=== PATIENT | female | born 1940 | race Caucasian/White ===

== ENCOUNTER 2017-11-09 14:14 | Inpatient (IN) | payer OTHER, BC ==
[~2017-11-09] VITALS: Ht 157.5 cm; Wt 58.5 kg
[2017-11-09 14:14] VITALS: BP_SYST 187
[2017-11-09] MEDS ORDERED: ALEN70TA3 PO (15:13)
[2017-11-09] MEDS ORDERED: ESCI10TA PO (15:13)
[2017-11-09] MEDS ORDERED: PRAV40TA PO (15:13)
[2017-11-09] MEDS ORDERED: OMEP40CA33 PO (15:13)
[2017-11-09] MEDS ORDERED: DILT120C89 PO (15:13)
[2017-11-09] MEDS ORDERED: MULT-1159 PO (15:13)
[2017-11-09] MEDS ORDERED: CAT.1 PO (15:13)
[2017-11-09] MEDS ORDERED: CLOP300T2 PO (15:13)
[2017-11-09] MEDS ORDERED: VALS1TAB78 PO (15:13)
[2017-11-09] MEDS ORDERED: LEVO100T9 PO (15:13)
[2017-11-09 16:06] LABS: INR 0.9 (0.8-1.2); PROTHROMBIN TIME 9.6 SECS (9.5-12.5)
[2017-11-09 16:33] LABS: ANION GAP 11 (5-15); CALCIUM 9.9 mg/dL (8.4-11.0); CHLORIDE 86 mmol/L (98-107); CREATININE 1.21 mg/dL (0.55-1.30); GLUCOSE 115 mg/dL (70-99); POTASSIUM 3.4 mmol/L (3.5-5.1); SODIUM SERUM 125 mmol/L (136-145); UREA NITROGEN, BLOOD 16 mg/dL (8-21)
[2017-11-09 16:39] LABS: ALANINE AMINOTRANSFERASE 23 U/L (12-78); ALBUMIN 4.4 g/dL (3.4-4.8); ASPARTATE AMINOTRANSFERASE 24 U/L (10-37); TOTAL BILIRUBIN 0.6 mg/dL (0.0-1.0)
[2017-11-09 16:51] LABS: HEMATOCRIT 37.1 % (36-48)
[2017-11-09 16:53] LABS: HEMOGLOBIN 13.4 g/dL (12.0-16.0); MEAN CORPUSCULAR HEMOGLOBIN 34 pg (27-31); MEAN CORPUSCULAR HGB CONC 36 % (32-36); MEAN CORPUSCULAR VOLUME 95 fL (79.0-98.0); PLATELET COUNT (AUTO) 184 K/uL (130-430); RED BLOOD CELL COUNT(AUTO) 3.93 MIL/uL (4.2-6.2); RED CELL DISTRIBUTION WIDTH 11.9 % (9.0-15.0)
[2017-11-09 16:56] LABS: WHITE BLOOD COUNT (AUTO) 31.2 K/uL (4.8-10.8)
[2017-11-09] MEDS ORDERED: cefTRIAXone 1 GM IVPB PREMIX 50 ML IV ONE (17:00)
[2017-11-09] MEDS ORDERED: NACL 0.9% 1,000 ML IV ONE (17:00)
[2017-11-09 17:25] LABS: BILIRUBIN,URINE NEGATIVE (NEGATIVE); BLOOD, URINE NEGATIVE (NEGATIVE); CLARITY/URINE CLEAR (CLEAR); COLOR,URINE YELLOW (YELLOW); GLUCOSE,URINE NEGATIVE (NEGATIVE); KETONES,URINE NEGATIVE (NEGATIVE); LEUKOCYTE ESTERASE ,URINE NEGATIVE (NEGATIVE); NITRITE, URINE NEGATIVE (NEGATIVE); PROTEIN URINE TRACE (NEGATIVE); UROBILINOGEN,URINE 0.2 (0.2-1.0)
[2017-11-09 17:55] LABS: BAND % (MANUAL) 1 % (0-6); BASOPHILS % (MANUAL) 0 % (0-2); EOSINOPHILS % (MANUAL) 0 % (0-7); LYMPHOCYTES % (MANUAL) 82 % (20-46); MONOCYTES % (MANUAL) 0 % (0-11)
[2017-11-09 19:08] VITALS: BP_SYST 230
[2017-11-09] MEDS: cloNIDine HCL 0.1 MG TABLET PO SCH (20:33)
[2017-11-09 20:57] VITALS: BP_SYST 194
[2017-11-10 00:20] VITALS: BP_SYST 125
[2017-11-10] MEDS ORDERED: OMEPRAZOLE 20 MG CAPSULE.DR (PriLOSEC) PO PRN (06:15)
[2017-11-10] MEDS: LEVOTHYROXINE SODIUM 0.1 MG TABLET PO SCH (07:05)
[2017-11-10 08:04] VITALS: BP_SYST 144
[2017-11-10] MEDS: CLOPIDOGREL BISULFATE 75 MG TABLET PO SCH (08:34)
[2017-11-10] MEDS: ATORVASTATIN 10 MG TABLET PO SCH (08:34)
[2017-11-10] MEDS: cloNIDine HCL 0.1 MG TABLET PO SCH ×2 (08:35→21:45)
[2017-11-10] MEDS: CITALOPRAM HYDROBROMIDE 20 MG TABLET PO SCH (08:35)
[2017-11-10] MEDS: DILTIAZEM HCL 120 MG CAP.SR.24H PO SCH (08:35)
[2017-11-10 09:51] LABS: ANION GAP 12 (5-15); CALCIUM 8.9 mg/dL (8.4-11.0); CHLORIDE 93 mmol/L (98-107); CREATININE 1.18 mg/dL (0.55-1.30); GLUCOSE 93 mg/dL (70-99); POTASSIUM 3.4 mmol/L (3.5-5.1); SODIUM SERUM 131 mmol/L (136-145); UREA NITROGEN, BLOOD 12 mg/dL (8-21)
[2017-11-10 09:56] LABS: CHOLESTEROL 173 mg/dL (<200); HDL CHOLESTEROL 63 mg/dL (>55); LDL CHOLESTEROL 98 mg/dL (<100); TRIGLYCERIDES 71 mg/dL (30-150)
[2017-11-10 09:57] LABS: HEMATOCRIT 33.1 % (36-48); HEMOGLOBIN 11.4 g/dL (12.0-16.0); MEAN CORPUSCULAR HEMOGLOBIN 33 pg (27-31); MEAN CORPUSCULAR HGB CONC 35 % (32-36); MEAN CORPUSCULAR VOLUME 94 fL (79.0-98.0); PLATELET COUNT (AUTO) 165 K/uL (130-430); RED BLOOD CELL COUNT(AUTO) 3.52 MIL/uL (4.2-6.2); RED CELL DISTRIBUTION WIDTH 12.4 % (9.0-15.0)
[2017-11-10 09:58] LABS: EOSINOPHILS # (AUTO) 0.1 K/uL (0.0-0.4); EOSINOPHILS % (AUTO) 0.3 % (0.0-4.0); LYMPHOCYTES # (AUTO) 21.3 K/uL (1.0-5.5); LYMPHOCYTES % (AUTO) 75.7 % (20.5-51.5); MONOCYTES # (AUTO) 1.6 K/uL (0.0-1.0); MONOCYTES % (AUTO) 5.8 % (1.7-9.3); NEUTROPHILS # (AUTO) 5.1 K/uL (1.8-7.7); NEUTROPHILS % (AUTO) 18.2 % (40.0-70.0); WHITE BLOOD COUNT (AUTO) 28.1 K/uL (4.8-10.8)
[2017-11-10] MEDS ORDERED: LOSARTAN POTASSIUM 50 MG TABLET (COZAAR) PO ONE (10:30)
[2017-11-10 10:38] LABS: FREE T4 (FREE THYROXINE) 1.4 ng/dl (0.8-1.5); THYROID STIMULATING HORMONE 0.18 uIu/mL (0.36-3.74)
[2017-11-10 12:39] VITALS: BP_SYST 137
[2017-11-10 16:42] VITALS: BP_SYST 140
[2017-11-10 19:54] VITALS: BP_SYST 152
[2017-11-11 00:08] VITALS: BP_SYST 159
[2017-11-11] MEDS: LEVOTHYROXINE SODIUM 0.1 MG TABLET PO SCH (06:07)
[2017-11-11 06:53] LABS: ALANINE AMINOTRANSFERASE 17 U/L (12-78); ALBUMIN 3.3 g/dL (3.4-4.8); ANION GAP 7 (5-15); ASPARTATE AMINOTRANSFERASE 18 U/L (10-37); CHLORIDE 94 mmol/L (98-107); CREATININE 1.05 mg/dL (0.55-1.30); GLUCOSE 102 mg/dL (70-99); SODIUM SERUM 129 mmol/L (136-145); TOTAL BILIRUBIN 0.5 mg/dL (0.0-1.0); UREA NITROGEN, BLOOD 12 mg/dL (8-21)
[2017-11-11 07:38] VITALS: BP_SYST 157
[2017-11-11 07:53] VITALS: BP_SYST 157
[2017-11-11] MEDS: CLOPIDOGREL BISULFATE 75 MG TABLET PO SCH (08:08)
[2017-11-11] MEDS: ATORVASTATIN 10 MG TABLET PO SCH (08:08)
[2017-11-11] MEDS: cloNIDine HCL 0.1 MG TABLET PO SCH (08:10)
[2017-11-11] MEDS: DILTIAZEM HCL 120 MG CAP.SR.24H PO SCH (08:10)
[2017-11-11] MEDS: CITALOPRAM HYDROBROMIDE 20 MG TABLET PO SCH (08:12)
[2017-11-11] MEDS ORDERED: LOSARTAN POTASSIUM 50 MG TABLET (COZAAR) PO SCH (09:00)
[2017-11-13] MEDS ORDERED: ALENDRONATE SODIUM 70 MG TABLET (FOSAMAX) PO SCH (06:15)
== END 2017-11-11 08:40 | disposition home or self-care (01) | DRG 641 ==
LOC: SED 14:14 → STU 18:13
PROVIDERS: ADMIT Internal Medicine Hospice and Palliative Medicine; ATTEND Internal Medicine Hospice and Palliative Medicine
DX: E87.1 Hypo-osmolality and hyponatremia (principal); C91.10 Chronic lymphocytic leukemia of B-cell type not having achieved remission; E86.0 Dehydration; E03.9 Hypothyroidism, unspecified; E78.5 Hyperlipidemia, unspecified; W18.30XA Fall on same level, unspecified, initial encounter; T50.2X5A Adverse effect of carbonic-anhydrase inhibitors, benzothiadiazides and other diuretics, initial encounter; I10 Essential (primary) hypertension; I65.29 Occlusion and stenosis of unspecified carotid artery; F32.9 Major depressive disorder, single episode, unspecified; Z90.710 Acquired absence of both cervix and uterus; Z85.43 Personal history of malignant neoplasm of ovary; Z79.899 Other long term (current) drug therapy; Z87.891 Personal history of nicotine dependence; Z92.21 Personal history of antineoplastic chemotherapy; Y93.89 Activity, other specified; Y92.89 Other specified places as the place of occurrence of the external cause; Y99.8 Other external cause status; Z86.73 Personal history of transient ischemic attack (TIA), and cerebral infarction without residual deficits
CPT/HCPCS: 36415; 70450-TC; 70551; 71045; 73030; 80048; 80053; 80061; 81003; 83605; 83735-TC; 84439; 84443-TC; 84484; 85007; 85025; 85027; 85610-TC; 85730-TC; 87040-TC; 93005; 93306; 93880; 96365; 99285; J0696; J7030